=== PATIENT | male | born 1980 ===

== ENCOUNTER 2018-02-24 14:06 | Emergency (ER) | payer OTHER ==
[2018-02-24 14:07] VITALS: BMI 27.4
[2018-02-24 14:14] VITALS: RESP 18; TEMP 99.2
[2018-02-24 14:33] VITALS: O2SAT 99
[2018-02-24] MEDS ORDERED: TDAP Vaccine 0.5 mL Syr IM ONE (14:44)
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
[2018-02-24 16:38] VITALS: BP 152/71; PULSE 89
== END 2018-02-24 16:50 | disposition home or self-care (01) ==
LOC: ED 14:06
DX: S02.2XXA Fracture of nasal bones, initial encounter for closed fracture (principal); V18.4XXA Pedal cycle driver injured in noncollision transport accident in traffic accident, initial encounter; Y93.55 Activity, bike riding; Y92.89 Other specified places as the place of occurrence of the external cause; Z23 Encounter for immunization